=== PATIENT | male | born 1960 | race African-American/Black ===

== ENCOUNTER 2019-04-03 16:30 | Emergency (ER) | payer MEDICAID ==
[~2019-04-03] VITALS: Ht 175.3 cm; Wt 80.0 kg
[2019-04-03] MEDS ORDERED: DIPHENHYDRAMINE 25MG CAPSULE PO ONE (18:15)
[2019-04-03] MEDS ORDERED: IBUPROFEN 600MG TABLET PO ONE (18:30)
[2019-04-03] MEDS ORDERED: DIAZEPAM 2 MG TABLET PO ONE (18:30)
[2019-04-03] MEDS ORDERED: DIAZEPAM 2 MG TABLET PO NR (19:45)
[2019-04-03 20:39] VITALS: BP 122/85
== END 2019-04-03 20:41 | disposition home or self-care (01) ==
LOC: ER 16:30
DX: S13.9XXA Sprain of joints and ligaments of unspecified parts of neck, initial encounter (principal); M54.5 Low back pain; X58.XXXA Exposure to other specified factors, initial encounter; Y93.89 Activity, other specified; Y92.811 Bus as the place of occurrence of the external cause
CPT/HCPCS: 99283